=== PATIENT | female | born 1995 | race Caucasian/White ===

== ENCOUNTER 2019-05-07 12:01 | Emergency (ER) | payer SELFPAY ==
[~2019-05-07] VITALS: Ht 152.4 cm; Wt 70.2 kg
--- NOTE | 2019-05-07 12:45 | Diagnostic Imaging Report ---
INDICATION: Previous injury to the foot, more recent, new injury with pain.. TECHNIQUE: 3 views of the left foot CORRELATION STUDY: None FINDINGS: The osseous structures of the foot are intact. Joint spaces are maintained. Alignment anatomic. Soft tissues appearing unremarkable. IMPRESSION: 1. Negative for acute findings of the foot. Dictated by: Dictated on workstation # [id number]
[2019-05-07] MEDS ORDERED: Pristiq (12:47)
[2019-05-07] MEDS ORDERED: Seroquel (12:47)
[2019-05-07] MEDS ORDERED: Hydroxyzine (12:47)
[2019-05-07] MEDS ORDERED: Trazodone HCl (12:47)
--- NOTE | 2019-05-07 12:49 | ED Lower Extremity ---
General Chief Complaint: Lower Extremity Stated Complaint: POSS BROKEN LEFT FOOT Source: patient Exam Limitations: no limitations History of Present Illness Date Seen by Provider: May 07, 2019 Time Seen by Provider: 12:20 Initial Comments The patient is a pleasant 22-year-old female presents for evaluation of left lateral foot pain. She states that 3 years ago she fractured the left foot and has occasionally worn a walking boot since that time. She says that 2 weeks ago she twisted/reinjured the foot and has been having pain when weight-bearing since then. She states there is a possibility that she is would like to have the test performed. She denies any ankle pain or any other injuries or complaints. Pain/Injury Location: left foot Method of Injury: twisted Modifying Factors: Improves With Immobilization (makes it better), Improves With Movement (makes it worse) Allergies and Home Medications Allergies Coded Allergies: codeine (Unverified Adverse Reaction, Unknown, 05/07/19) Patient Home Medication List Home Medication List Reviewed: Yes Review of Systems Constitutional: no symptoms reported EENTM: no symptoms reported Respiratory: no symptoms reported Cardiovascular: no symptoms reported Gastrointestinal: no symptoms reported Genitourinary: no symptoms reported Musculoskeletal: other (left lateal foot pain) Skin: no symptoms reported Psychiatric/Neurological: No Symptoms Reported All Other Systems Reviewed Negative Unless Noted: Yes Past Gclxijz-Awdjrd-Extdls Hx Past Med/Social Hx: Reviewed Nursing Past Med/Soc Hx Patient Social History Alcohol Use: Denies Use Recreational Drug Use: No Smoking Status: Current Everyday Smoker Type Used: Cigarettes 2nd Hand Smoke Exposure: No Recent Foreign Travel: No Contact w/Someone Who Travel: No Physical Abuse: No Sexual Abuse: No Mistreated: No Fear: No Immunizations Up To Date Date of Influenza Vaccine: Apr 07, 2019 Physical Exam Vital Signs Vital Signs - First Documented 05/07/19 12:10 Temp 36.4 Pulse 90 Resp 18 B/P (MAP) 135/86 (102) Pulse Ox 99 O2 Delivery Room Air Capillary Refill : Height, Weight, BMI Height: '" Weight: lbs. oz. kg; BMI Method: General Appearance: WD/WN, no apparent distress HEENT: PERRL/EOMI, pharynx normal Neck: non-tender, full range of motion Cardiovascular: regular rate, rhythm, no edema, no JVD Respiratory: chest non-tender, lungs clear, normal breath sounds Feet: left foot bone tenderness (left 5th metatarsal head ttp) Neurologic/Psychiatric: director microbiology II-XII nml as tested, no motor/sensory deficits, alert, normal mood/affect, oriented x 3 Skin: normal color, warm/dry Progress/Results/Core Measures Results/Orders My Orders Orders - MAYCO BORREGO DO Urine Bedside (05/07/19 12:27) Foot 3 View Left (05/07/19 12:27) Ice: Apply To Affected Area (05/07/19 12:27) Vital Signs/I&O 05/07/19 12:10 Temp 36.4 Pulse 90 Resp 18 B/P (MAP) 135/86 (102) Pulse Ox 99 O2 Delivery Room Air Progress Progress Note : Progress Note @1310 - Patient updated on imaging results which are unremarkable. There is no evidence of an acute fracture. Advised the patient to use her walking boot for comfort if she finds that it is more comfortable. Workup today fails reveal any emergent pathology. The patient is stable for discharge home. Diagnostic Imaging Diagonstic Imaging: Xray Comments [facility], [place] NAME: YVETTE GIBSON [facility] REC#: [id number] PT STATUS: REG ER : 1995 PHYSICIAN: MAYCO BORREGO DO ADMIT DATE: 05/07/19/ER FS Draft Date of Exam:05/07/19 FOOT 3 VIEW LEFT INDICATION: Previous injury to the foot, more recent, new injury with pain.. TECHNIQUE: 3 views of the left foot CORRELATION STUDY: None FINDINGS: The osseous structures of the foot are intact. Joint spaces are maintained. Alignment anatomic. Soft tissues appearing unremarkable. IMPRESSION: 1. Negative for acute findings of the foot. Dictated on workstation # [id number] Dict: 05/07/19 1244 Trans: 05/07/19 1245 DO [id number] Interpreted by: TREY PRATT DO Electronically signed by: Departure Impression Primary Impression: Left foot pain Disposition: HOME, SELF-CARE Condition: Stable Departure-Patient Inst. Decision time for Depature: 13:13 Referrals: [facility]/ (PCP) Primary Care Physician RUTHIE SANTOYO (Family) Primary Care Physician Patient Instructions: Foot Sprain (DC) Add. Discharge Instructions: Apply ice as needed for pain relief. Take ibuprofen or Tylenol for pain relief as needed. Follow-up with your doctor in the next 2-3 days. If it is more comfortable for you to use a walking boot temporarily that would be fine. Return to the ER for new or worsening symptoms. MAYCO BORREGO DO May 07, 2019 12:49
[2019-05-07 13:24] VITALS: BP 130/82
--- NOTE | 2019-05-07 13:24 | NUR ---
Pt discharged to home after review of home instructions reviewed and pt verbalized understanding. Pt requests a work note to not return till tomorrow and then states "Add that I need to wear by walking boot I had from my past Fx foot while at work." Dr Bullard reports make the note sufficient to allow pt to accept her discharge plan from the ER. No Rx.
== END 2019-05-07 13:24 | disposition home or self-care (01) ==
LOC: ER FS 12:03
DX: M79.672 Pain in left foot (principal); F17.210 Nicotine dependence, cigarettes, uncomplicated; X50.1XXA Overexertion from prolonged static or awkward postures, initial encounter
CPT/HCPCS: 73630; 84703

== ENCOUNTER 2019-05-15 00:20 | Emergency (ER) | payer SELFPAY ==
[~2019-05-15] VITALS: Ht 154.9 cm; Wt 68.1 kg
[~2019-05-15 00:20] MED LIST: Hydroxyzine; Pristiq; Seroquel; Trazodone HCl
--- NOTE | 2019-05-15 00:47 | ED Abdominal Pain ---
General Chief Complaint: Lower Extremity Stated Complaint: CRAMPING Nursing Triage Note: PT. STATED HER LAST PERIOD WAS 2018. PT. REPORTED SPOTTING ON THE April. PT. REPORTED HAVING ABD. CRAMPING SINCE . NO SPOTTING NO LEAKING NOTED. Sepsis Screen: No Definite Risk History of Present Illness Date Seen by Provider: May 15, 2019 Time Seen by Provider: 00:30 Initial Comments Patient is white female with a positive test [facility] on [facility] and also did a quantitative beta hCG which she says always comes back low she doesn't know what the number was does not an OB and has been cramping and having some suprapubic pain. Timing/Duration: 3-4 Days Severity/Quality: Moderate, Cramping Location: Suprapubic Radiation: No Radiation Activities at Onset: None Modifying Factors: Improves With Lying down Associated Symptoms: No Headache, No Nausea/Vomiting Allergies and Home Medications Allergies Coded Allergies: codeine (Unverified Adverse Reaction, Unknown, 05/07/19) Patient Home Medication List Home Medication List Reviewed: Yes Review of Systems Review of Systems Constitutional: No chills, No fever, No malaise, No weakness EENTM: No Ear Pain, No Throat Pain, No Throat Swelling Respiratory: Denies Cough, Denies Shortness of Air Cardiovascular: Denies Chest Pain, Denies Palpitations Gastrointestinal: Abdominal Pain; Denies Diarrhea, Denies Nausea, Denies Vomiting Genitourinary: Denies Frequency, Denies Hematuria Musculoskeletal: No muscle pain, No muscle stiffness Skin: No lesions, No rash Psychiatric/Neurological: Denies Headache, Denies Numbness, Denies Tingling Past Chyjrtz-Ftjhnv-Gvrkql Hx Past Med/Social Hx: Reviewed Nursing Past Med/Soc Hx Patient Social History Type Used: Cigarettes 2nd Hand Smoke Exposure: No Recent Foreign Travel: No Contact w/Someone Who Travel: No Recent Infectious Disease Expo: No Recent Hopitalizations: No Physical Abuse: No Sexual Abuse: No Mistreated: No Fear: No Immunizations Up To Date Date of Influenza Vaccine: Apr 07, 2019 Seasonal Allergies Seasonal Allergies: No Past Medical History Surgeries: No Respiratory: No Cardiac: No Neurological: No : Yes Last Menstrual Period: Mar 19, 2019 Hx : 4 Hx Para: 2 Hx Total # of Abortions (Sp): 1 Genitourinary: No Gastrointestinal: No Musculoskeletal: Yes (L foot Fx 2010) Fractures Endocrine: No HEENT: No Cancer: No Psychosocial: Yes Bipolar, Depression Integumentary: No Blood Disorders: No Physical Exam Vital Signs Vital Signs - First Documented 05/15/19 00:30 Temp 36.9 Pulse 102 Resp 16 B/P (MAP) 135/84 (101) Pulse Ox 99 O2 Delivery Room Air Capillary Refill : Less Than 3 Seconds Height/Weight/BMI Height: '" Weight: lbs. oz. kg; 28.00 BMI Method: General Appearance: WD/WN, mild distress HEENT: PERRL/EOMI, TMs normal, pharynx normal Neck: non-tender, normal inspection Respiratory: lungs clear, normal breath sounds Cardiovascular: regular rate, rhythm, no murmur Gastrointestinal: normal bowel sounds; No distended, No guarding, No rebound; tenderness (mild suprapubic) Extremities: non-tender, normal inspection Back: normal inspection, no CVA tenderness Neurologic/Psychiatric: no motor/sensory deficits, alert, normal mood/affect Progress/Results/Core Measures Results/Orders Lab Results Laboratory Tests Test 05/15/19 00:46 05/15/19 00:54 05/15/19 02:07 Range/Units Urine Color YELLOW Urine Clarity SLIGHTLY CLOUDY Urine pH 6.5 5-9 Urine Specific [place] 1.025 H 1.016-1.022 Urine Protein NEGATIVE NEGATIVE Urine Glucose (UA) NEGATIVE NEGATIVE Urine Ketones NEGATIVE NEGATIVE Urine Nitrite NEGATIVE NEGATIVE Urine Bilirubin NEGATIVE NEGATIVE Urine Urobilinogen 0.2 < = 1.0 MG/DL Urine Leukocyte Esterase NEGATIVE NEGATIVE Urine RBC (Auto) NEGATIVE NEGATIVE Urine RBC NONE /HPF Urine WBC 5-10 H /HPF Urine Squamous Epithelial Cells 25-50 H /HPF Urine Crystals PRESENT H /LPF Urine Calcium Oxalate Crystals FEW H /LPF Urine Bacteria FEW H /HPF Urine Casts NONE /LPF Urine Mucus MODERATE H /LPF Urine Culture Indicated YES White Blood Count 15.7 H 4.3-11.0 10^3/uL Red Blood Count 4.78 4.35-5.85 10^6/uL Hemoglobin 12.9 11.5-16.0 G/DL Hematocrit 40 35-52 % Mean Corpuscular Volume 83 80-99 FL Mean Corpuscular Hemoglobin 27 25-34 PG Mean Corpuscular Hemoglobin Concent 33 32-36 G/DL Red Cell Distribution Width 13.9 10.0-14.5 % Platelet Count 310 130-400 10^3/uL Mean Platelet Volume 10.3 7.4-10.4 FL Neutrophils (%) (Auto) 71 42-75 % Lymphocytes (%) (Auto) 20 12-44 % Monocytes (%) (Auto) 7 0-12 % Eosinophils (%) (Auto) 2 0-10 % Basophils (%) (Auto) 0 0-10 % Neutrophils # (Auto) 11.1 H 1.8-7.8 X 10^3 Lymphocytes # (Auto) 3.1 1.0-4.0 X 10^3 Monocytes # (Auto) 1.1 H 0.0-1.0 X 10^3 Eosinophils # (Auto) 0.3 0.0-0.3 10^3/uL Basophils # (Auto) 0.1 0.0-0.1 10^3/uL Neutrophils % (Manual) 79 % Lymphocytes % (Manual) 15 % Monocytes % (Manual) 3 % Eosinophils % (Manual) 3 % Microcytosis MARKED Human Chorionic Gonadotropin, Quant 278 H <5 MIU/ML My Orders Orders - MECCA MCCORD JR, MD Cbc And Manual Diff (05/15/19 00:41) Ua Culture If Indicated (05/15/19 00:41) Hcg,Quantitative (05/15/19 00:41) Urine Culture (05/15/19 00:46) Chlam Dna Probe (05/15/19 02:12) Neis Mohsen Dna Urine Test (05/15/19 02:12) Ceftriaxone For Iv Use (Rocephin For I (05/15/19 02:30) Vital Signs/I&O 05/15/19 00:30 Temp 36.9 Pulse 102 Resp 16 B/P (MAP) 135/84 (101) Pulse Ox 99 O2 Delivery Room Air Blood Pressure Mean: 101 Progress Progress Note : Time: 02:49 Progress Note Discussed with patient about right lower quadrant pain low beta hCG high white count do feel like she needs an ultrasound may be a CAT scan to rule out ectopic or ovarian cyst abdominal appendicitis. We'll send to [facility] as they have services and surgical back up. We'll go ahead and give antibiotics at this Departure Impression Primary Impression: Right lower quadrant abdominal pain Additional Impression: Qualified Codes: Z34.90 - Encounter for supervision of normal , unspecified, unspecified trimester Disposition: 02 XFER SHT-TRM HOSP Condition: Stable Transfer Transfer Reason: Exceeds level of care Time Spoke to Accepting Phy: 02:50 Transfer Progress Notes Discussed with Dr. Reyes at [facility] in [facility] will except in the emergency room to emergency room transfer by ALS transport Transfer Time: 02:50 Method of Transfer: EMS Departure-Patient Inst. Referrals: [facility] (PCP) Primary Care Physician RUTHIE SANTOYO (Family) Primary Care Physician MECCA MCCORD JR, MD May 15, 2019 00:47
[2019-05-15 01:04] LABS: WHITE BLOOD COUNT 15.7 10^3/uL (4.3-11.0)
[2019-05-15 01:05] LABS: BASOPHILS # (AUTO) 0.1 10^3/uL (0.0-0.1); BASOPHILS % (AUTO) 0 % (0-10); EOSINOPHILS # (AUTO) 0.3 10^3/uL (0.0-0.3); EOSINOPHILS % (AUTO) 2 % (0-10); HEMATOCRIT 40 % (35-52); HEMOGLOBIN 12.9 G/DL (11.5-16.0); LYMPHOCYTES # (AUTO) 3.1 X 10^3 (1.0-4.0); LYMPHOCYTES % (AUTO) 20 % (12-44); MEAN CORPUSCULAR HEMOGLOBIN 27 PG (25-34); MEAN CORPUSCULAR HGB CONC 33 G/DL (32-36); MEAN CORPUSCULAR VOLUME 83 FL (80-99); MEAN PLATELET VOLUME 10.3 FL (7.4-10.4); MONOCYTES # (AUTO) 1.1 X 10^3 (0.0-1.0); MONOCYTES % (AUTO) 7 % (0-12); NEUTROPHILS # (AUTO) 11.1 X 10^3 (1.8-7.8); NEUTROPHILS % (AUTO) 71 % (42-75); PLATELET COUNT 310 10^3/uL (130-400); RED CELL DISTRIBUTION WIDTH 13.9 % (10.0-14.5)
[2019-05-15 01:06] LABS: BACTERIA,URINE FEW /HPF; BILIRUBIN,URINE NEGATIVE (NEGATIVE); CALCIUM OXALATE CRYSTALS,UR FEW /LPF; CLARITY,URINE SLIGHTLY CLOUDY; COLOR,URINE YELLOW; GLUCOSE, URINE (UA) NEGATIVE (NEGATIVE); KETONES,URINE NEGATIVE (NEGATIVE); LEUKOCYTE ESTERASE ,URINE NEGATIVE (NEGATIVE); NITRITE,URINE NEGATIVE (NEGATIVE); PH,URINE 6.5 (5-9); PROTEIN,URINE NEGATIVE (NEGATIVE); SQUAMOUS EPITHELIAL CELL,UR 25-50 /HPF
[2019-05-15 01:20] LABS: EOSINOPHILS % (MANUAL) 3 %; LYMPHOCYTES % (MANUAL) 15 %; MICROCYTOSIS MARKED; MONOCYTES % (MANUAL) 3 %; NEUTROPHILS % (MANUAL) 79 %
--- NOTE | 2019-05-15 02:11 | NUR ---
PELVIC EXAM DONE BY THE DOCTOR AND THE LAB WAS SENT TO THE LAB.
[2019-05-15] MEDS ORDERED: cefTRIAXone FOR IV USE 1,000 MG in WATER (STERILE) FOR INJECTION 10 ML IV ONE (02:30)
[2019-05-15 03:05] VITALS: BP 132/82
== END 2019-05-15 03:57 | disposition short-term general hospital (02) ==
LOC: EDUNIT# 00:20 → ER FS 00:25
DX: O26.899 Other specified pregnancy related conditions, unspecified trimester (principal); R10.31 Right lower quadrant pain; Z88.5 Allergy status to narcotic agent; Z3A.00 Weeks of gestation of pregnancy not specified
CPT/HCPCS: 36415; 81000; 84702; 85007; 85027; 87088; 87491; 87591; 96374

== ENCOUNTER → 2020-08-30 | Outpatient (CLI) | payer MEDICAID | LOC: LAB FS 14:15 | PROVIDERS: ATTEND Family Medicine | DX: O20.0 Threatened abortion (principal) | CPT/HCPCS: 36415; 84702 ==

== ENCOUNTER → 2020-09-01 | Outpatient (CLI) | payer MEDICAID ==
[2020-09-01 11:22] LABS: HEMATOCRIT 38 % (35-52); HEMOGLOBIN 12.1 G/DL (11.5-16.0); MEAN CORPUSCULAR HEMOGLOBIN 25 PG (25-34); MEAN CORPUSCULAR HGB CONC 32 G/DL (32-36); MEAN CORPUSCULAR VOLUME 80 FL (80-99); WHITE BLOOD COUNT 9.2 10^3/uL (4.3-11.0)
[2020-09-01 11:23] LABS: MEAN PLATELET VOLUME 10.6 FL (7.4-10.4); PLATELET COUNT 281 10^3/uL (130-400)
== END ==
LOC: LAB FS 10:59
PROVIDERS: ATTEND Family Medicine
DX: Z34.91 Encounter for supervision of normal pregnancy, unspecified, first trimester (principal); Z3A.00 Weeks of gestation of pregnancy not specified
CPT/HCPCS: 36415; 85027; 86703; 86762; 86780; 86850; 86900; 86901; 87088; 87340

== ENCOUNTER → 2020-11-13 | Outpatient (CLI) | payer MEDICAID | LOC: LAB FS 14:29 | PROVIDERS: ATTEND Family Medicine | DX: Z34.91 Encounter for supervision of normal pregnancy, unspecified, first trimester (principal); Z3A.00 Weeks of gestation of pregnancy not specified | CPT/HCPCS: 36415; 82105; 82677; 84702; 86336 ==

== ENCOUNTER → 2020-11-16 | Outpatient (CLI) | payer MEDICAID ==
--- NOTE | 2020-11-16 12:27 | Diagnostic Imaging Report ---
INDICATION: survey. TECHNIQUE: Multiple real-time grayscale images were obtained over the gravid uterus. COMPARISON: None FINDINGS: There is a single live fetus in a transverse presentation, head to maternal right. heart rate was recorded at 132 bpm. Placenta is posterior and to the right. The amniotic fluid volume is normal. The kidneys, bladder and stomach are unremarkable. brain is unremarkable. There is a four-chamber heart. There is a three-vessel cord with normal insertion. spine is unremarkable. Biometrical measurements are as follows: Biparietal 4.33 cm, age 19 weeks 1 days. Head circumference 15.70 cm, age 18 weeks 5 days. Abdominal circumference 12.55 cm, age 18 weeks 2 days. Femur length 2.60 cm, age 18 weeks 0 days. Sonographic estimate age: 18 weeks 4 days. Sonographic estimated date of delivery: 04/15/21. Estimated Weight: 225 gm (+/- 33 gm). LMP percentile: 62%. heart rate: 132 beats per minute. number: 1 of 1. IMPRESSION: Single live IUP 18 weeks 4 days gestational age with estimated date of confinement sonographically of 04/15/2021. No complicating features are detected. Dictated by: Dictated on workstation # [id number]
== END ==
LOC: RAD 10:09
PROVIDERS: ATTEND Family Medicine
DX: Z34.92 Encounter for supervision of normal pregnancy, unspecified, second trimester (principal); Z3A.18 18 weeks gestation of pregnancy
CPT/HCPCS: 76805

== ENCOUNTER → 2021-01-15 | Outpatient (CLI) | payer MEDICAID ==
[~2021-01-15] MED LIST changes: +IRON1TAB95 PO; +PREN1TAB19 PO
[2021-01-15 14:47] LABS: HEMOGLOBIN 9.5 g/dL (11.5-16.0); MEAN CORPUSCULAR HEMOGLOBIN 25 pg (25-34); WHITE BLOOD COUNT 9.3 10^3/uL (4.3-11.0)
[2021-01-15 14:48] LABS: HEMATOCRIT 30 % (35-52); MEAN CORPUSCULAR HGB CONC 32 g/dL (32-36); MEAN CORPUSCULAR VOLUME 79 fL (80-99); MEAN PLATELET VOLUME 10.7 fL (9.0-12.2); PLATELET COUNT 243 10^3/uL (130-400)
== END ==
LOC: LAB FS 14:21
PROVIDERS: ATTEND Family Medicine
DX: Z34.91 Encounter for supervision of normal pregnancy, unspecified, first trimester (principal)
CPT/HCPCS: 36415; 82950; 85027; 86780

== ENCOUNTER 2021-01-16 17:25 | Outpatient (CLI) | payer MEDICAID ==
[~2021-01-16] VITALS: Ht 152 cm; Wt 86.9 kg
[~2021-01-16 17:25] MED LIST changes: -IRON1TAB95 PO; -PREN1TAB19 PO
[2021-01-16 18:00] VITALS: BP 120/67
[2021-01-16 18:15] VITALS: BP 120/67
[2021-01-16] MEDS ORDERED: NS IV 1000 ML 1,000 ML IV SCH (18:45)
[2021-01-16] MEDS ORDERED: PROMETHAZINE INJ 25 MG/ML (PHENERGAN) AMP IVP ONE (18:45)
[2021-01-16] MEDS ORDERED: NS IV 1000 ML 1,000 ML ONE (19:00)
[2021-01-16 19:25] LABS: BASOPHILS % (AUTO) 0 % (0-10); EOSINOPHILS # (AUTO) 0.1 10^3/uL (0.0-0.3); EOSINOPHILS % (AUTO) 1 % (0-10); HEMATOCRIT 31 % (35-52); HEMOGLOBIN 9.7 g/dL (11.5-16.0); LYMPHOCYTES # (AUTO) 1.5 10^3/uL (1.0-4.0); LYMPHOCYTES % (AUTO) 18 % (12-44); MEAN CORPUSCULAR HEMOGLOBIN 25 pg (25-34); MEAN CORPUSCULAR HGB CONC 31 g/dL (32-36); MEAN CORPUSCULAR VOLUME 80 fL (80-99); MEAN PLATELET VOLUME 11.1 fL (9.0-12.2); MONOCYTES # (AUTO) 0.6 10^3/uL (0.0-1.0); MONOCYTES % (AUTO) 7 % (0-12); NEUTROPHILS # (AUTO) 6.4 10^3/uL (1.8-7.8); NEUTROPHILS % (AUTO) 73 % (42-75); PLATELET COUNT 261 10^3/uL (130-400); WHITE BLOOD COUNT 8.8 10^3/uL (4.3-11.0)
[2021-01-16 19:42] VITALS: BP 128/73
[2021-01-16 19:47] LABS: ALBUMIN 3.2 GM/DL (3.2-4.5); BILIRUBIN,TOTAL 0.6 MG/DL (0.1-1.0); CALCIUM 8.9 MG/DL (8.5-10.1); CREATININE SERUM 0.63 MG/DL (0.60-1.30); POTASSIUM 3.4 MMOL/L (3.6-5.0); TOTAL PROTEIN 6.2 GM/DL (6.4-8.2)
[2021-01-16] MEDS ORDERED: PREN1TAB19 PO (19:47)
[2021-01-16] MEDS ORDERED: IRON1TAB95 PO (19:47)
[2021-01-16 20:03] LABS: BILIRUBIN,URINE NEGATIVE (NEGATIVE); CLARITY,URINE SL CLOUDY; COLOR,URINE YELLOW; GLUCOSE, URINE (UA) NEGATIVE (NEGATIVE); KETONES,URINE NEGATIVE (NEGATIVE); LEUKOCYTE ESTERASE ,URINE 2+ (NEGATIVE); NITRITE,URINE NEGATIVE (NEGATIVE); PH,URINE 6.5 (5-9); PROTEIN,URINE NEGATIVE (NEGATIVE)
[2021-01-16 20:11] LABS: BACTERIA,URINE FEW /HPF; SQUAMOUS EPITHELIAL CELL,UR 0-2 /HPF
[2021-01-16 20:40] VITALS: BP 128/73
--- NOTE | 2021-01-17 08:07 | Physician Query-Final Dx ---
UMESH SEVILLA 01/17/21 0807: Clinic Account Progress/Dx Physician Query: Please give diagnosis Please include # weeks gestation Date of Service Jan 16, 2021 at 17:25 DIANE ROBLES DO 01/19/21 0921: Clinic Account Progress/Dx DIAGNOSIS: Diagnosis nausea and vomiting UMESH SEVILLA Jan 17, 2021 08:07 DIANE ROBLES DO Jan 19, 2021 09:21
== END 2021-01-16 20:25 | disposition home or self-care (01) ==
LOC: WSo 17:25 → LDRP 17:25 → WSo 20:25
PROVIDERS: ATTEND Obstetrics & Gynecology
DX: O21.9 Vomiting of pregnancy, unspecified (principal); Z3A.00 Weeks of gestation of pregnancy not specified
CPT/HCPCS: 36415; 80053; 81000; 85025; 87088; 96360; 99213

== ENCOUNTER → 2021-01-19 | Outpatient (CLI) | payer MEDICAID ==
[~2021-01-19] MED LIST changes: +IRON1TAB95 PO; +PREN1TAB19 PO
== END ==
LOC: LAB FS 12:23
PROVIDERS: ATTEND Family Medicine
DX: R73.09 Other abnormal glucose (principal)
CPT/HCPCS: 36415; 82951; 82952

== ENCOUNTER 2021-03-08 07:20 | Outpatient (CLI) | payer MEDICAID ==
[~2021-03-08] VITALS: Ht 154.9 cm; Wt 93.4 kg
[2021-03-08 08:23] VITALS: BP 131/80
[2021-03-08 08:30] LABS: BILIRUBIN,URINE NEGATIVE (NEGATIVE); CLARITY,URINE SL CLOUDY; COLOR,URINE YELLOW; GLUCOSE, URINE (UA) NEGATIVE (NEGATIVE); KETONES,URINE NEGATIVE (NEGATIVE); LEUKOCYTE ESTERASE ,URINE NEGATIVE (NEGATIVE); NITRITE,URINE NEGATIVE (NEGATIVE); PROTEIN,URINE NEGATIVE (NEGATIVE)
[2021-03-08 08:41] LABS: BACTERIA,URINE NEGATIVE /HPF
[2021-03-08 12:21] LABS: AMPHETAMINE SCREEN, URINE NEGATIVE (NEGATIVE); BARBITURATE SCREEN URINE NEGATIVE (NEGATIVE); BENZODIAZEPINES SCREEN URINE NEGATIVE (NEGATIVE); CANNABINOID SCREEN, URINE NEGATIVE (NEGATIVE); COCAINE SCREEN URINE NEGATIVE (NEGATIVE); METHADONE STAT NEGATIVE (NEGATIVE); METHAMPHETAMINE SCREEN URINE S NEGATIVE (NEGATIVE); OPIATE SCREEN URINE NEGATIVE (NEGATIVE); OXYCODONE STAT NEGATIVE (NEGATIVE); PROPOXYPHENE STAT NEGATIVE (NEGATIVE); TRICYCLIC ANTIDEPRESSANTS SCRE NEGATIVE (NEGATIVE)
--- NOTE | 2021-03-08 13:25 | OB Triage Report ---
Standard Progress Note Progress Notes/Assess & Plan Date Seen by a Provider: Mar 08, 2021 Time Seen by a Provider: 11:45 Expected Date of Delivery: Apr 17, 2020 Gestational Age in Weeks: 34 Gestational Age in Days: 2 LMP/SULEMA Comment: SULEMA 04/17/2020 Progress/Assessment & Plan S: Patient is a 25 yo with IUP at 34w2d who presents for contractions. Denies vaginal bleeding, abnormal vaginal discharge, LOF. Notes good movements O: Vital Signs 03/08/21 08:23 Temp 36.4 Pulse 103 Resp 18 Pulse Ox 100 O2 Delivery Room Air General: not in distress. Resting comfortably Heart: normal rate and peripheral perfusion Lungs: symmetric chest rise, non-labored respirations [place]: contractions q 3-5 min FHR: 120bpm, mod neil, + accels, - decels SVE: 2/70/-3 A/P: 25 yo with IUP at 34w2d who presents for contractions - Wet prep notable for clue cells and WBC: will treat with flagyl for BV - UA negative - UDS negative - SVE unchanged over period of stay in triage - Oral hydrate - Tylenol 1g PO x1 for pain Final Diagnosis contractions BRENDEN GONZALEZ MD Mar 08, 2021 13:25
[2021-03-08] MEDS ORDERED: ACETAMINOPHEN 500 MG TAB (TYLENOL) PO PRN (14:00)
[2021-03-08] MEDS ORDERED: ACETAMINOPHEN 500 MG TAB (TYLENOL) ONE (14:04)
[2021-03-08] MEDS ORDERED: METR-145 PO (16:28)
--- NOTE | 2021-03-08 16:32 | Discharge Inst-Simple/Standard ---
Discharge Inst-Standard Reconcile Patient Problems Problems Reviewed?: Yes Discharge Medications New, Converted or Re-Newed RX: Transmitted to Pharmacy Patient Instructions/Follow Up Plan of Care/Instructions/FU: Keep all follow-up visits as scheudled Activity as Tolerated: Yes Discharge Diet: No Restrictions Return to The Hospital For: Vaginal bleeding, Leakage of fluid per vagina, decreased/absent movements, frequent painful contractions, Fever of 100.4 or greater, or any other concerns BRENDEN GONZALEZ MD Mar 08, 2021 16:32
--- NOTE | 2021-03-08 16:33 | Short Stay Summary ---
Discharge Summary Hospital Course Was the Problem List Reviewed?: Yes Hospital Course Date of Admission: Admission Diagnosis : Family Physician/Provider: Flor Stahl MD Date of Discharge: 03/08/21 Discharge Diagnosis: [ ] Hospital Course: [ ] Labs and Pending Lab Test: Laboratory Tests 03/08/21 07:30: Urine Color YELLOW, Urine Clarity SL CLOUDY, Urine pH 6.0, Urine Specific [place] 1.020, Urine Protein NEGATIVE, Urine Glucose (UA) NEGATIVE, Urine Ketone s NEGATIVE, Urine Nitrite NEGATIVE, Urine Bilirubin NEGATIVE, Urine Urobilinogen 0.2, Urine Leukocyte Esterase NEGATIVE, Urine RBC (Auto) NEGATIVE, Urine RBC NONE, Urine WBC NONE, Urine Squamous Epithelial Cells NONE, Urine Crystals NONE, Urine Bacteria NEGATIVE, Urine Casts NONE, Urine Mucus NEGATIVE, Urine Culture Indicated NO, Urine Opiates Screen NEGATIVE, Urine Oxycodone Screen NEGATIVE, Urine Methadone Screen NEGATIVE, Urine Propoxyphene Screen NEGATIVE, Urine Barbiturates Screen NEGATIVE, Ur Tricyclic Antidepressants Screen NEGATIVE, Urine Phencyclidine Screen NEGATIVE, Urine Amphetamines Screen NEGATIVE, Urine Methamphetamines Screen NEGATIVE, Urine Benzodiazepines Screen NEGATIVE, Urine Cocaine Screen NEGATIVE, Urine Cannabinoids Screen NEGATIVE Microbiology 03/08/21 Wet Prep - Final, Complete Home Meds Active Metronidazole 500 Mg Tablet 500 Mg PO Q12H 7 Days Reported Iron 100 Plus Tablet (Iron,Carbonyl/Vit C/Vit B12/FA) 1 Each Tablet 1 Each PO ONCE Vitamins Tablet ( Vit/Iron Fumarate/FA) 1 Each Tablet 1 Each PO DAILY Discharge Instructions Discharge Diet: No Restrictions Activity as Tolerated: Yes Discharge Physical Examination Allergies: Coded Allergies: codeine (Unverified Adverse Reaction, Unknown, 05/07/19) Discharge Summary Date of Admission Date of Discharge BRENDEN GONZALEZ MD Mar 08, 2021 16:33
== END 2021-03-08 16:40 | disposition home or self-care (01) ==
LOC: WSo 07:20 → LDRP 07:22 → WSo 16:40
PROVIDERS: ATTEND Obstetrics & Gynecology
DX: O60.03 Preterm labor without delivery, third trimester (principal); Z3A.34 34 weeks gestation of pregnancy
CPT/HCPCS: 80306; 81000; 87210; 99214

== ENCOUNTER 2021-03-19 19:20 | Outpatient (CLI) | payer MEDICAID ==
[~2021-03-19] VITALS: Ht 154.9 cm; Wt 93.9 kg
[2021-03-19] VITALS (7 sets, daily range): BP systolic 136–141; BP diastolic 90–96
[~2021-03-19 19:20] MED LIST changes: +METR-145 PO
[2021-03-19 20:13] LABS: BILIRUBIN,URINE NEGATIVE (NEGATIVE); CLARITY,URINE CLEAR; COLOR,URINE YELLOW; GLUCOSE, URINE (UA) NEGATIVE (NEGATIVE); KETONES,URINE NEGATIVE (NEGATIVE); LEUKOCYTE ESTERASE ,URINE 1+ (NEGATIVE); NITRITE,URINE NEGATIVE (NEGATIVE); PH,URINE 6.5 (5-9); PROTEIN,URINE NEGATIVE (NEGATIVE)
[2021-03-19 20:24] LABS: BACTERIA,URINE MODERATE /HPF
[2021-03-19] MEDS ORDERED: ACETAMINOPHEN 500 MG TAB (TYLENOL) PO ONE (21:15)
[2021-03-19] MEDS ORDERED: CYCLOBENZAPRINE 10 MG (FLEXERIL) TAB PO SCH (21:15)
[2021-03-19 22:23] LABS: BASOPHILS % (AUTO) 0 % (0-10); EOSINOPHILS # (AUTO) 0.1 10^3/uL (0.0-0.3); EOSINOPHILS % (AUTO) 1 % (0-10); HEMATOCRIT 30 % (35-52); LYMPHOCYTES % (AUTO) 21 % (12-44); MEAN CORPUSCULAR HEMOGLOBIN 21 pg (25-34); MEAN CORPUSCULAR HGB CONC 30 g/dL (32-36); MEAN CORPUSCULAR VOLUME 72 fL (80-99); MEAN PLATELET VOLUME 10.7 fL (9.0-12.2); MONOCYTES # (AUTO) 0.7 10^3/uL (0.0-1.0); MONOCYTES % (AUTO) 7 % (0-12); NEUTROPHILS # (AUTO) 6.8 10^3/uL (1.8-7.8); NEUTROPHILS % (AUTO) 71 % (42-75); PLATELET COUNT 236 10^3/uL (130-400); WHITE BLOOD COUNT 9.7 10^3/uL (4.3-11.0)
[2021-03-19 22:34] LABS: ALBUMIN 3.2 GM/DL (3.2-4.5); POTASSIUM 3.5 MMOL/L (3.6-5.0)
[2021-03-19 22:36] LABS: CALCIUM 8.6 MG/DL (8.5-10.1)
[2021-03-19 22:37] LABS: TOTAL PROTEIN 6.3 GM/DL (6.4-8.2)
[2021-03-19 22:39] LABS: BILIRUBIN,TOTAL 0.6 MG/DL (0.1-1.0)
[2021-03-19 22:40] LABS: CREATININE SERUM 0.7 MG/DL (0.60-1.30)
--- NOTE | 2021-03-19 23:25 | OB Triage Report ---
Standard Progress Note Progress Notes/Assess & Plan Date Seen by a Provider: Mar 19, 2021 Time Seen by a Provider: 22:20 Expected Date of Delivery: Apr 17, 2021 Gestational Age in Weeks: 35 Gestational Age in Days: 6 LMP/SULEMA Comment: SULEMA; 04/17/2021 Progress/Assessment & Plan Patient is a 25 yo with IUP at 35w6d gestational age, who presented for contractions. SVE per RN was 3cm/thick/hi, and unchanged over the 3hr period of evaluation in triage. She denied any vaginal bleeding or abnormal vaginal discharge, and none was noted on exam. FHT was reactive. Her pain resolved with Tylenol and Flexeril. VS were however notable for mild range BPs over multiple checks while in triage, and patient denied any symptoms of end organ involvement including CP, SOB, ESQUEDA, vision abnormalities, or abdominal pain. CBC, CMP, and UPC were non-diagnostic for PreE. She was therefore diagnosed with gestational hypertension. FHT remained reactive She has an OB appointment tomorrow with Jazz Villatoro APRN. Patient was encouraged to keep appointment, with plan to schedule IOL for 37 weeks gesta tional age secondary to gHTN. S&S of preE were discussed with patient and return precautions were given. Evaluation and plan were discussed with pt's OB provider. Final Diagnosis Uterine contractions in third trimester Gestational Hypertension Diagnosis/Problems Diagnosis/Problems (1) Gestational hypertension Status: Acute (2) Uterine contractions Status: Acute BRENDEN GONZALEZ MD Mar 19, 2021 23:25
== END 2021-03-19 23:15 | disposition home or self-care (01) ==
LOC: LDRP 19:20 → WSo 19:20
PROVIDERS: ATTEND Obstetrics & Gynecology
DX: O62.9 Abnormality of forces of labor, unspecified (principal); O36.8130 Decreased fetal movements, third trimester, not applicable or unspecified; O13.3 Gestational [pregnancy-induced] hypertension without significant proteinuria, third trimester; Z3A.35 35 weeks gestation of pregnancy
CPT/HCPCS: 36415; 80053; 81000; 82570; 84156; 85025; 99213

== ENCOUNTER → 2021-04-03 | Outpatient (CLI) | payer MEDICAID | LOC: LABNPT 16:06 | PROVIDERS: ATTEND Nurse Practitioner Women's Health | DX: R80.9 Proteinuria, unspecified (principal) | CPT/HCPCS: 82570; 84156 ==

== ENCOUNTER 2021-04-06 08:59 | Inpatient (IN) | payer MEDICAID ==
[~2021-04-06] VITALS: Ht 157 cm; Wt 94.8 kg
[2021-04-06] VITALS (14 sets, daily range): BP systolic 115–161; BP diastolic 67–98
[2021-04-06] MEDS ORDERED: D5 LR IV SOLUTION 1,000 ML IV ONE (09:41)
[2021-04-06] MEDS ORDERED: NS (IVPB) 50 ML ONE (09:41)
[2021-04-06] MEDS ORDERED: AMPICILLIN 2,000 MG/14.8 ML (IV USE) ONE (09:41)
[2021-04-06] MEDS ORDERED: AMPICILLIN FOR IV USE 2,000 MG in NS (IVPB) 50 ML IV SCH (09:46)
--- NOTE | 2021-04-06 09:52 | History & Physical-OB ---
OB - Chief Complaint & HPI Date/Time Date of Admission: Date of Admission: Date seen by a Provider: Apr 06, 2021 Time Seen by a Provider: 09:45 Chief Complaint/History OB-Reason for Admission/Chief: gestational diabetes A1, induced hypertension Hx : 4 Hx Para: 3 Expected Date of Delivery: Apr 17, 2021 Gestational Age in Weeks: 38 Gestational Age in Days: 3 Indication for induction: medical complication (see above) Admission Nurse Assessment Rev: Yes History of Labs A+/- HIV - HBsAg - VDRL NR Rub I GBS + Other testing has been wnl. However, there is polyhydramnios. She had been started on metformin by Dr. Stahl, but before she started it, she changed her diet (her step daughter is a type I diabetic) and had controlled blood sugars so never did start. Has had elevated BP the last few visits but PIH labs and PC ratio have been wnl. No severe BP and asymptomatic. Plan was to induce 38-39 weeks (scheduled 04/09/2020). Allergies and Home Medications Allergies Coded Allergies: codeine (Unverified Adverse Reaction, Unknown, 05/07/19) Patient Home Medication List Home Medication List Reviewed: Yes Iron,Carbonyl/Vit C/Vit B12/FA (Iron 100 Plus Tablet) 1 Each Tablet, 1 EACH PO ONCE, (Reported) Entered as Reported by: HORACIO ROBB on 01/16/211946 Vit/Iron Fumarate/FA ( Vitamins Tablet) 1 Each Tablet, 1 EACH PO DAILY, (Reported) Entered as Reported by: HORACIO ROBB on 01/16/211946 OB - History Hx of Present Care: Yes Ultrasounds: Normal mid trimester US Obstetrical Complications: Gestational Diabetes, Gestational Hypertension Information Induced Hypertension: Yes Maternal Gestational Diabetes: Yes Obstetrical History Hx : 6 Hx Para: 3 Hx # Term Pregnancies: 3 Hx # Pregnancies: 0 Number of Living Children: 3 Hx Termination: No Hx Total # of Abortions (Spona: 2 Hx Multiple Gestation: No Hx Ectopic : No Hx Stillbirth: No Hx Complication: No Hx Induced Hypertens: No Hx Maternal Gestational Diabet: No Hx Hemorrhage: No Delivery History Hx Dystocia: No Hx Forceps Assisted Delivery: No Hx Vacuum Extraction Assisted: No Hx Placenta Abnormality: No Hx Distress: No Hx Large For Gestational Age I: No Hx Small for Gestational Age I: No Hx Section: No Hx Vaginal Delivery Post C-Sec: No Hx Blood Disorders: No Patient Past Medical History NC Social History/Family History Alcohol Use: Denies Use Recreational Drug Use: No Smoking Cessation: Former smoker 2nd Hand Smoke Exposure: No Immunizations Rubella: immune RPR/VDRL: Negative GBS Status: Negative HBsAG: Negative OB - Admission Exam Physical Exam Vitals: first BP 160/94, repeat afebrile Heart: Rhythm Normal Abdomen: Gravid Extremities: Edema Reflexes: Normal Cervical Dilatation: 5cm Effacement: 100% Station: Ballotable (vertex by bedsids US) Membranes: Intact Heart Rate: 140's Accelerations: Accelerations Present Decelerations: No Decelerations Short Term Variability: Present [employer] Product Specialist Variability: Average (6-25) Contractions on Admission: 6-10 Minutes Apart OB - Assessment/Plan/Diagnosis Assessment Assessment: active labor, group B positive strep, other (GDM1, PIH) Admission Dx [facility] Admission Status: Inpatient Order (span 2 midnights) Reason for Inpatient Admission: [facility] Plan Plan: Expectant Management Induction Method: other (ampicillin for GBS prophylaxis. AROM or Augment as needed, but not after 2 doses of Ampicillin. Stahl = peds ) DIANE ROBLES DO Apr 06, 2021 09:52
[2021-04-06 09:59] LABS: BASOPHILS # (AUTO) 0.1 10^3/uL (0.0-0.1); BASOPHILS % (AUTO) 1 % (0-10); EOSINOPHILS # (AUTO) 0.1 10^3/uL (0.0-0.3); EOSINOPHILS % (AUTO) 1 % (0-10); HEMATOCRIT 31 % (35-52); HEMOGLOBIN 9.1 g/dL (11.5-16.0); LYMPHOCYTES % (AUTO) 20 % (12-44); MEAN CORPUSCULAR HEMOGLOBIN 21 pg (25-34); MEAN CORPUSCULAR HGB CONC 30 g/dL (32-36); MEAN CORPUSCULAR VOLUME 70 fL (80-99); MEAN PLATELET VOLUME 11.1 fL (9.0-12.2); MONOCYTES # (AUTO) 0.7 10^3/uL (0.0-1.0); MONOCYTES % (AUTO) 7 % (0-12); NEUTROPHILS # (AUTO) 7.3 10^3/uL (1.8-7.8); NEUTROPHILS % (AUTO) 71 % (42-75); PLATELET COUNT 286 10^3/uL (130-400); WHITE BLOOD COUNT 10.2 10^3/uL (4.3-11.0)
[2021-04-06] MEDS ORDERED: BUTORPHANOL INJ 2 MG/ML (STADOL) VIAL IV PRN (10:00)
[2021-04-06 10:15] LABS: ALBUMIN 3.1 GM/DL (3.2-4.5); POTASSIUM 4.2 MMOL/L (3.6-5.0)
[2021-04-06 10:16] LABS: CALCIUM 8.5 MG/DL (8.5-10.1)
[2021-04-06 10:16] LABS: BILIRUBIN,URINE NEGATIVE (NEGATIVE); CLARITY,URINE SL CLOUDY; COLOR,URINE YELLOW; GLUCOSE, URINE (UA) NEGATIVE (NEGATIVE); KETONES,URINE NEGATIVE (NEGATIVE); LEUKOCYTE ESTERASE ,URINE 2+ (NEGATIVE); NITRITE,URINE NEGATIVE (NEGATIVE); PROTEIN,URINE NEGATIVE (NEGATIVE)
[2021-04-06 10:17] LABS: TOTAL PROTEIN 5.9 GM/DL (6.4-8.2)
[2021-04-06 10:19] LABS: BILIRUBIN,TOTAL 0.5 MG/DL (0.1-1.0)
[2021-04-06 10:21] LABS: CREATININE SERUM 0.75 MG/DL (0.60-1.30)
[2021-04-06 10:38] LABS: BACTERIA,URINE MODERATE /HPF; WBC,URINE 50-100 /HPF
[2021-04-06] MEDS: AMPICILLIN FOR IV USE 1,000 MG in NS (IVPB) 50 ML IV SCH ×3 (13:55→22:05)
[2021-04-06] MEDS ORDERED: CALCIUM CARBONATE 500 MG (TUMS) TAB.CHEW PO PRN (14:15)
[2021-04-06] MEDS ORDERED: OXYTOCIN PRE-MIX DRIP 500 ML IV SCH ×2 (16:15→23:45)
[2021-04-06] MEDS ORDERED: OXYTOCIN PRE-MIX DRIP 500 ML IV ONE (16:16)
[2021-04-06] MEDS ORDERED: D5 LR IV SOLUTION 1,000 ML IV SCH (19:00)
[2021-04-06] MEDS ORDERED: LIDOCAINE/EPI 2% 1:200,00 (XYLOCAINE) 10 ML VIAL ONE ×2 (21:29→21:55)
[2021-04-06] MEDS ORDERED: MINERAL OIL CONCENTRATE 99.9% 15 ML UDC ONE (21:56)
[2021-04-06] MEDS ORDERED: diphenhydrAMINE 50 MG/ML INJ (BENADRYL) ONE (22:46)
[2021-04-06] MEDS ORDERED: fentaNYL INJ 100 MCG/2 ML AMP ONE (23:05)
[2021-04-06] MEDS ORDERED: METHYLERGONOVINE 0.2 MG/ML (METHERGINE) AMP ONE (23:14)
[2021-04-06] MEDS ORDERED: ceFAZolin INJECTION 1,000 MG ONE (23:20)
[2021-04-06] MEDS ORDERED: morphine INJ 10 MG/ML 1ML (SYR OR VIAL) ONE (23:44)
[2021-04-06] MEDS ORDERED: NALOXONE 0.4 MG/ML 1 ML (NARCAN) VIAL IV PRN (23:45)
[2021-04-06] MEDS ORDERED: ONDANSETRON 4 MG/2 ML (SDV) Z0FRAN IVP PRN (23:45)
[2021-04-06] MEDS ORDERED: TETANUS,DIPTH,PERTUSS P/F (BOOSTRIX) 0.5 ML VIAL IM SCH (23:45)
[2021-04-06] MEDS ORDERED: AZITHROMYCIN INJECTION 500 MG in NS (IVPB) 250 ML IV ONE (23:45)
[2021-04-06] MEDS ORDERED: morphine INJ 4 MG/ML 1 ML (VIAL/SYRINGE) IV PRN (23:45)
[2021-04-06] MEDS ORDERED: MEASLES,MUMPS,RUBELLA 1 EA INJ SC SCH (23:45)
--- NOTE | 2021-04-06 23:52 | Cesarean Section Operative ---
Procedure Procedure Note Pre-operative Diagnosis: Rebel Duran is a 25 /Para 6 / 3,Gestational Age 38 3/7 weeks, bradycardia. gestational hypertension, gestational diabetes, GBS + Post-operative Diagnosis: same Procedure: primary low transverse section Physician: DIANE ROBLES Estimated blood loss: 700 mL Disposition: stable and extubated Findings: Viable male infant, Apgars unknown at time of dictation, weight pending, intact placenta, 3vc, normal appearing uterus, tubes, and ovaries. body cord x 1. Baby required resuscitation at time of delivery. Indications: Rebel Duran is a 25 /Para 6 / 3,Gestational Age 38 3/7 weeks, bradycardia. gestational hypertension, gestational diabetes presenting for emergency primary section. This patient Presented in spontaneous labor and was 4 to 5 cm dilated on admission. She is GBS positive so ampicillin was started for group B strep prophylaxis. She was dreda irregularly and, due to multiparous status, augmentation was not started in order to allow for second dose of ampicillin. She was 7 to 8 cm dilated with assisted rupture of membranes at approximately Procedure Details: 20:10 PM. Oxytocin had been started about 1600. She was thought to be nearly completely dilated and wanted to push so began pushing with the RN. But was not making progress and when I examined her she had a swollen cervix and I asked her to stop pushing and she was given 1 mg of Stadol. And allowed to labor. She was only 8 cm dilated at that time. She then tried to start pushing again and was again noted to be about 8 to 9 cm and her cervix was swollen so she was given 50 mg of Benadryl IV. This was to help with cervical swelling. During this time, she wanted to push on her hands and knees. And we were having difficulty with monitoring the baby. She did not have an epidural. A pudendal block was done with 1% lidocaine. She continued to want to push on her side or hands and knees, but we were unable to monitor the baby. So she was turned to her back. At this point she was noted to be having variable decelerations but they did return to baseline. There was another patient that had been waiting for a section for failure to progress until this patient had delivered. Because she was not complete and would require some more laboring, we planned to proceed with the other patients . However just as we got to the operating room, the nurse contacted me and stated that the heart tones were very low. I returned to the room and the heart tones had recovered partially but then or decelerated into the 40s and did not return to baseline. We decided at this point to do a stat and return to the other patient to her room. And then proceeded with primary stat for this particular patient. Jimenez catheter was placed by the nurse. And a Betadine splash was done on the abdomen. And, after general anesthesia was initiated by our anesthesia colleagues, the patient was placed in the dorsal supine with leftward tilt for uterine displacement.~ A Pfannenstiel skin incision was made at 2301 using a scalpel and carried down through the underlying fascia. The fascia was incised in the midline and extended laterally in a blunt fashion. The peritoneum was identified and entered bluntly in the midline. This was then stretched laterally using manual strength. After entering the abdominal cavity and confirming lack of intraperitoneal adhesions, an extra large Nolberto retractor was placed and the lower uterine segment was visualized. A scalpel was utilized to make a low transverse uterine incision. This was extended bluntly. The 's head was grasped and brought to the level of the incision. Fundal pressure was applied and infant was delivered without difficulty. Delivery time 2301. The baby was minimally responsive. Mouth and nares were suctioned with bulb suction. After the umbilical cord was clamped and cut, the was handed off to the pediatric staff. A sample of cord blood was then obtained. cord gases were sent. The placenta was delivered intact via uterine massage. The uterus was exteriorized and cleared of all clots and debris. Methergine was given due to uterine hypotonus. The uterine incision was closed using 0 Vicryl in a running locked fashion. A second imbricated layer was placed using 0 Vicryl in a running fashion as well. The uterus was flexed forward and the posterior rectouterine space was inspected and cleared of all clots and debris. Again the hysterotomy site was examined and hemostasis was observed. The bilateral tubes and ovaries appeared normal. The uterus was placed back into the abdominal cavity and abdominal gutters were cleared of all clots and debris. A final check of the uterine incision showed it to be hemostatic. The peritoneum was closed using 3-0 Vicryl in a running fashion. The fascia was closed with 0 PDS in a running fashion. The subcutaneous space was hemostatic, and irrigated. The subcutaneous space was closed with 3-0 Vicryl in several single interrupted stitches. The skin was then closed using 4-0 Monocryl in a running subcuticular fashion. The skin edges were reapproximated together and were hemostatic. A pressure dressing was applied. All sponge, lap and needle counts were correct at the end of the procedure per nursing. Vitals - Labs Vital Signs - I&O Vital Signs Date Time Temp Pulse Resp B/P (MAP) Pulse Ox O2 Delivery O2 Flow Rate FiO2 04/06/21 19:20 82 18 130/82 (98) Room Air 04/06/21 19:05 90 18 149/87 (107) Room Air 04/06/21 18:51 96 18 145/82 (103) Room Air 04/06/21 18:37 85 18 150/90 (110) Room Air 04/06/21 18:22 90 18 137/87 (104) Room Air 04/06/21 18:05 101 18 149/93 (111) Room Air 04/06/21 17:51 95 18 145/86 (105) Room Air 04/06/21 17:37 92 18 142/87 (105) Room Air 04/06/21 17:21 94 18 133/88 (103) Room Air 04/06/21 17:04 36.6 87 18 140/77 (98) Room Air 04/06/21 14:03 36.7 97 18 99 Room Air 04/06/21 10:02 102 18 138/98 (111) 99 Room Air 04/06/21 09:21 36.5 105 18 161/94 (116) 99 Room Air Labs Laboratory Tests 04/06/21 09:30: Urine Color YELLOW, Urine Clarity SL CLOUDY, Urine pH 6.0, Urine Specific Perry 1.025H, Urine Protein 22H, Urine Glucose (UA) NEGATIVE, Urine Ketones NEGATIVE, Urine Nitrite NEGATIVE, Urine Bilirubin NEGATIVE, Urine Urobilinogen 0.2, Urine Leukocyte Esterase 2+H, Urine RBC (Auto) TRACE-IH, Urine RBC NONE, Urine WBC 50-100H, Urine Squamous Epithelial Cells 10-25H, Urine Crystals NONE, Urine Bacteria MODERATEH, Urine Casts NONE, Urine Mucus NEGATIVE, Urine Culture Indicated YES, Urine Creatinine 56, Urine Protein/Creatinine Ratio 0.39 04/06/21 09:40: White Blood Count 10.2, Red Blood Count 4.39, Hemoglobin 9.1L, Hematocrit 31L, Mean Corpuscular Volume 70L, Mean Corpuscular Hemoglobin 21L, Mean Corpuscular Hemoglobin Concent 30L, Red Cell Distribution Width 17.1H, Platelet Count 286, Mean Platelet Volume 11.1, Immature Granulocyte % (Auto) 1, Neutrophils (%) (Auto) 71, Lymphocytes (%) (Auto) 20, Monocytes (%) (Auto) 7, Eosinophils (%) (Auto) 1, Basophils (%) (Auto) 1, Neutrophils # (Auto) 7.3, Lymphocytes # (Auto) 2.0, Monocytes # (Auto) 0.7, Eosinophils # (Auto) 0.1, Basophils # (Auto) 0.1, Immature Granulocyte # (Auto) 0.1, Sodium Level 136, Potassium Level 4.2, Chloride Level 108H, Carbon Dioxide Level 17L, Anion Gap 11, Blood Urea Nitrogen 11, Creatinine 0.75, Estimat Glomerular Filtration Rate 96, BUN/Creatinine Ratio 15, Glucose Level 81, Calcium Level 8.5, Corrected Calcium 9.2, Total Bilirubin 0.5, Aspartate Amino Transf (AST/SGOT) 11, Alanine Aminotransferase (ALT/SGPT) 8, Alkaline Phosphatase 171H, Lactate Dehydrogenase 320H, Total Protein 5.9L, Albumin 3.1L DIANE ROBLES DO Apr 06, 2021 23:52
[2021-04-07] VITALS (13 sets, daily range): BP systolic 121–149; BP diastolic 60–97
[2021-04-07] MEDS: KETOROLAC 30 MG/ML VIAL IV SCH ×3 (00:56→16:21)
[2021-04-07] MEDS ORDERED: CHLORASEPTIC LOZENGE MM PRN (01:45)
[2021-04-07] MEDS ORDERED: DOCU100C37 PO (01:47)
[2021-04-07] MEDS ORDERED: IBUP-844 PO (01:47)
[2021-04-07] MEDS ORDERED: ACET-93 PO (01:47)
[2021-04-07] MEDS ORDERED: OXC5T PO (01:47)
--- NOTE | 2021-04-07 01:50 | Discharge Inst-Women's Service ---
Discharge Inst-Women's Serv Depart Medication/Instructions New, Converted or Re-Newed RX: Other (transmitted and on chart) Instructions nothing in vagina for 6 weeks no lifting over 25 lbs no driving for 1 week Final Diagnosis labor gestational hypertension gestational diabetes bradycardia emergency section Antepartum anemia Problems Reviewed?: Yes Consults/Follow Up Additional Follow Up: Yes ([address] Mendoza for incision check; [address] Stahl) Activity Activity: Activity as Tolerated Driving Instructions: No Driving for 1 Week NO SMOKING: NO SMOKING Nothing Inside Vagina: No Douching, No Mcmullen, No Tampons Diet Discharge Diet: No Restrictions Symptoms to Report to : Bleeding Excessive, Pain Increased, Fever Over 101 Degrees F, Vaginal Bleeding Increase, Cramps in Feet or Legs, Vaginal Discharge Foul For Any Problems or Questions: Contact Your Physician Skin/Wound Care Infection Signs and Symptoms: Increased Redness, Foul Odor of Wound, Increased Drainage, Skin Itchy or Has a Rash, Increased Swelling, Temperature Above 101 F Operative Area Clean and Dry: Keep Incision Clean/Dry Stitches/[place]/Dermabond: Dermabond Bathing Instructions: DIANE Black DO Apr 07, 2021 01:50
[2021-04-07] MEDS ORDERED: MILK OF MAGNESIA 400 MG/5 ML 30 ML UDC PO PRN (05:00)
[2021-04-07 05:59] LABS: BASOPHILS # (AUTO) 0.1 10^3/uL (0.0-0.1); BASOPHILS % (AUTO) 0 % (0-10); EOSINOPHILS % (AUTO) 0 % (0-10); HEMATOCRIT 26 % (35-52); HEMOGLOBIN 7.6 g/dL (11.5-16.0); LYMPHOCYTES % (AUTO) 6 % (12-44); MEAN CORPUSCULAR HEMOGLOBIN 21 pg (25-34); MEAN CORPUSCULAR HGB CONC 29 g/dL (32-36); MEAN CORPUSCULAR VOLUME 71 fL (80-99); MEAN PLATELET VOLUME 10.7 fL (9.0-12.2); MONOCYTES # (AUTO) 0.7 10^3/uL (0.0-1.0); MONOCYTES % (AUTO) 4 % (0-12); NEUTROPHILS # (AUTO) 15.2 10^3/uL (1.8-7.8); NEUTROPHILS % (AUTO) 90 % (42-75); PLATELET COUNT 231 10^3/uL (130-400); WHITE BLOOD COUNT 16.9 10^3/uL (4.3-11.0)
[2021-04-07] MEDS ORDERED: ceFAZolin INJECTION 1,000 MG in NS (IVPB) 50 ML IV SCH (06:00)
[2021-04-07] MEDS ORDERED: CATHETER FLUSH 10 ML SYR IV SCH (06:00)
[2021-04-07] MEDS: FERROUS SULF 325 MG (IRON) TAB PO SCH (08:32)
[2021-04-07] MEDS: DOCUSATE SODIUM 100 MG (COLACE) CAP PO SCH ×2 (08:32→21:51)
[2021-04-07] MEDS: ACETAMINOPHEN 500 MG TAB (TYLENOL) PO SCH ×2 (08:33→18:42)
--- NOTE | 2021-04-07 10:17 | Anesthesia-General Post-Op ---
General Patient Condition Mental Status/LOC: Same as Preop Cardiovascular: Satisfactory Nausea/Vomiting: Absent Respiratory: Satisfactory Pain: Controlled Complications: Absent Post Op Complications Complications None Follow Up Care/Instructions Patient Instructions None needed. Anesthesia/Patient Condition Patient Condition Patient is doing well, no complaints, stable vital signs, no apparent adverse anesthesia problems. No complications reported per nursing. BO RIVERA CRNA Apr 07, 2021 10:17
--- NOTE | 2021-04-07 11:38 | Postpartum Progress Note ---
Note Note Day # 1 Subjective: Patient is without complaints. Ambulating, voiding. Tolerating a regular diet without nausea or vomiting. Normal lochia. Pain is well controlled with oral pain medications. Objective: Physical Exam: General - Alert and oriented, no apparent distress Abdomen - Soft, appropriately tender to palpation, non-distended, fundus firm at umbilicus Extremities - no edema, negative Chucho's bilaterally Incision- c/d/i Assessment: POD 1 PLTCS Acute blood loss anemia- superimposed on anemia of Peripartum HTN- labile Plan: Routine care. Encourage breast feeding. Encourage ambulation. Ferrous sulfate supplementation. Plan for discharge tomorrow Vitals - Labs Vital Signs - I&O Vital Signs Date Time Temp Pulse Resp B/P (MAP) Pulse Ox O2 Delivery O2 Flow Rate FiO2 04/07/21 08:30 36.9 104 18 121/81 (94) 99 Room Air 04/07/21 05:10 36.8 106 18 147/97 (114) 100 Room Air 04/07/21 01:38 81 18 149/86 (107) 100 Room Air 04/07/21 01:20 69 18 142/94 (110) 100 Room Air 04/07/21 01:05 69 18 130/88 (102) 99 Room Air 04/07/21 00:38 36.5 20 142/95 (111) 97 Room Air 04/07/21 00:37 Room Air 04/07/21 00:31 20 140/90 (107) 97 Room Air 04/07/21 00:30 Room Air 04/07/21 00:20 20 139/89 (106) 99 OxyMask 10 04/07/21 00:20 OxyMask 10 04/07/21 00:09 20 132/92 (105) 99 OxyMask 10 04/07/21 00:06 OxyMask 10 04/07/21 00:00 24 126/86 (99) 99 OxyMask 10 04/06/21 23:48 36.1 16 115/67 (83) 98 OxyMask 10 04/06/21 23:48 OxyMask 10 04/06/21 19:20 82 18 130/82 (98) Room Air 04/06/21 19:05 90 18 149/87 (107) Room Air 04/06/21 18:51 96 18 145/82 (103) Room Air 04/06/21 18:37 85 18 150/90 (110) Room Air 04/06/21 18:22 90 18 137/87 (104) Room Air 04/06/21 18:05 101 18 149/93 (111) Room Air 04/06/21 17:51 95 18 145/86 (105) Room Air 04/06/21 17:37 92 18 142/87 (105) Room Air 04/06/21 17:21 94 18 133/88 (103) Room Air 04/06/21 17:04 36.6 87 18 140/77 (98) Room Air 04/06/21 14:03 36.7 97 18 99 Room Air I & O 04/07/21 07:00 Intake Total 1750 ml Output Total 1700 ml Balance 50 ml Labs Laboratory Tests 04/07/21 05:48: White Blood Count 16.9H, Red Blood Count 3.68L, Hemoglobin 7.6L, Hematocrit 26L, Mean Corpuscular Volume 71L, Mean Corpuscular Hemoglobin 21L, Mean Corpuscular Hemoglobin Concent 29L, Red Cell Distribution Width 17.0H, Platelet Count 231, Mean Platelet Volume 10.7, Immature Granulocyte % (Auto) 1, Neutrophils (%) (Auto) 90H, Lymphocytes (%) (Auto) 6L, Monocytes (%) (Auto) 4, Eosinophils (%) (Auto) 0, Basophils (%) (Auto) 0, Neutrophils # (Auto) 15.2H, Lymphocytes # (Auto) 1.0, Monocytes # (Auto) 0.7, Eosinophils # (Auto) 0.0, Basophils # (Auto) 0.1, Immature Granulocyte # (Auto) 0.1 Microbiology 04/06/21 Urine Culture - Final, Complete Gram Pos Mixed Bacterial Allyssa CAMILA MEADOWS DO Apr 07, 2021 11:38
[2021-04-07] MEDS ORDERED: IBUPROFEN 600 MG (MOTRIN) TAB PO ONE (16:36)
[2021-04-07] MEDS: IBUPROFEN 600 MG (MOTRIN) TAB PO SCH ×2 (16:38→21:52)
[2021-04-08] MEDS ORDERED: IBUPROFEN 600 MG (MOTRIN) TAB PO SCH
[2021-04-08] MEDS: IBUPROFEN 600 MG (MOTRIN) TAB PO SCH ×2 (03:44→10:17)
[2021-04-08] MEDS: ACETAMINOPHEN 500 MG TAB (TYLENOL) PO SCH (03:44)
[2021-04-08 03:45] VITALS: BP 139/80
[2021-04-08 07:50] VITALS: BP 132/88
[2021-04-08] MEDS ORDERED: OXC5T PO (09:36)
[2021-04-08] MEDS: DOCUSATE SODIUM 100 MG (COLACE) CAP PO SCH (10:16)
[2021-04-08] MEDS: FERROUS SULF 325 MG (IRON) TAB PO SCH (10:17)
[2021-04-08 11:21] VITALS: BP 139/80
== END 2021-04-08 12:40 | disposition home or self-care (01) | DRG 787 ==
LOC: WSo 08:59 → LDRP 09:00 → WSo 22:00 → LDRP 22:00 → WS 04-07 01:16
PROVIDERS: ADMIT Obstetrics & Gynecology; ATTEND Obstetrics & Gynecology
PROC: 10D00Z1 Extraction of Products of Conception, Low, Open Approach (ICD-10-PCS; principal; 2021-04-06 22:54)
DX: O13.4 Gestational [pregnancy-induced] hypertension without significant proteinuria, complicating childbirth (principal); D62 Acute posthemorrhagic anemia; O24.420 Gestational diabetes mellitus in childbirth, diet controlled; O36.8330 Maternal care for abnormalities of the fetal heart rate or rhythm, third trimester, not applicable or unspecified; O90.81 Anemia of the puerperium; O40.3XX0 Polyhydramnios, third trimester, not applicable or unspecified; O62.2 Other uterine inertia; Z37.0 Single live birth; Z3A.38 38 weeks gestation of pregnancy; O99.013 Anemia complicating pregnancy, third trimester; O99.824 Streptococcus B carrier state complicating childbirth; Z88.6 Allergy status to analgesic agent
CPT/HCPCS: 36415; 80053; 81000; 82570; 83615; 84156; 85025; 87088; 94664; 99212

== ENCOUNTER 2021-11-13 22:54 | Emergency (ER) | payer MEDICAID ==
[~2021-11-13] VITALS: Ht 170 cm; Wt 65.0 kg
[~2021-11-13 22:54] MED LIST changes: +ACET-93 PO; +DOCU100C37 PO; +IBUP-844 PO; +OXC5T PO
--- NOTE | 2021-11-13 23:11 | ED Lower Extremity ---
General Chief Complaint: Lower Extremity Stated Complaint: FALL, L FOOT PAIN Source: patient Exam Limitations: no limitations History of Present Illness Date Seen by Provider: Nov 13, 2021 Time Seen by Provider: 22:59 Initial Comments 26-year-old female that is 7 weeks on November 14 with an LMP of September 26 coming in due to left foot pain. About an hour prior to arrival she was stepping off a step and felt a sharp pain in her left lateral foot. The pain is severe, constant, sharp, worse with any type of pressure, better with rest. She is taken nothing for as of yet. She did hear a pop. He cannot remember if she really rolled her foot. She is otherwise denying any other acute complaints Allergies and Home Medications Allergies Coded Allergies: codeine (Unverified Adverse Reaction, Unknown, 05/07/19) Patient Home Medication List Home Medication List Reviewed: Yes Acetaminophen (Acetaminophen) 500 Mg Tablet, 1,000 MG PO Q8HR Prescribed by: DIANE ROBLES on 04/07/21146 Docusate Sodium (Docusate Sodium) 100 Mg Capsule, 100 MG PO BID Prescribed by: DIANE ROBLES on 04/07/21146 Ibuprofen (Ibu) 600 Mg Tablet, 600 MG PO Q6HR Prescribed by: DIANE ROBLES on 04/07/21146 Iron,Carbonyl/Vit C/Vit B12/FA (Iron 100 Plus Tablet) 1 Each Tablet, 1 EACH PO ONCE, (Reported) Entered as Reported by: HORACIO ROBB on 01/16/211946 Oxycodone Hcl (Oxyir Tablet) 5 Mg Tab, 5 MG PO Q4H PRN for PAIN-BREAKTHROUGH Prescribed by: CAMILA MEADOWS on 04/08/21 0936 Vit/Iron Fumarate/FA ( Vitamins Tablet) 1 Each Tablet, 1 EACH PO DAILY, (Reported) Entered as Reported by: HORACIO ROBB on 01/16/211946 Review of Systems Constitutional: No fever EENTM: No blurred vision Respiratory: No cough Cardiovascular: No chest pain Gastrointestinal: no symptoms reported Genitourinary: no symptoms reported : Yes Musculoskeletal: joint pain Skin: no symptoms reported Psychiatric/Neurological: No Symptoms Reported All Other Systems Reviewed Negative Unless Noted: Yes Past [id number]-[id number] Hx Patient Social History Tobacco Use?: No Seasonal Allergies Seasonal Allergies: No Past Medical History Surgeries: No Respiratory: No Currently Using CPAP: No Currently Using BIPAP: No Cardiac: No Neurological: No Genitourinary: No Gastrointestinal: No Musculoskeletal: Yes (L foot Fx 2010) Fractures Endocrine: No HEENT: No Cancer: No Psychosocial: Yes Bipolar, Depression Integumentary: No Blood Disorders: No Physical Exam Vital Signs Capillary Refill : Height, Weight, BMI Height: '" Weight: lbs. oz. kg; 38.45 BMI Method: General Appearance: WD/WN, no apparent distress HEENT: PERRL/EOMI, normal ENT inspection, pharynx normal Neck: non-tender, full range of motion, supple, normal inspection Cardiovascular: regular rate, rhythm, no edema, no murmur Respiratory: chest non-tender, lungs clear, normal breath sounds, no respiratory distress, no accessory muscle use Gastrointestinal: normal bowel sounds, non tender, soft; No distended, No guarding, No rebound Back: normal inspection Ankles: bilateral ankle non-tender, bilateral ankle normal inspection, bilateral ankle normal range of motion, bilateral ankle no evidence of injury Feet: right foot non-tender, right foot normal inspection, right foot normal range of motion, right foot no evidence of injury; left foot abrasions/lacerati ons (Base of fifth metatarsal, no Lisfranc tenderness) Neurologic/Tendon: normal sensation, normal motor functions, normal tendon functions Neurologic/Psychiatric: no motor/sensory deficits, alert, normal mood/affect Skin: normal color, warm/dry Lymphatic: no adenopathy Progress/Results/Core Measures Results/Orders My Orders Orders - AUGUSTO PACKER MD Foot 3 View Left (11/13/21 23:04) Acetaminophen Tablet (Tylenol Tablet) (11/13/21 23:15) Progress Progress Note : Progress Note 26-year-old female with above history coming in due to left foot pain after twisting it. ABCs were intact and vitals were stable on presentation. Physical exam with left fifth metatarsal pain at the base. Given Tylenol for pain. X- ray obtained and interpreted by me showing a base of the fifth metatarsal fracture that is an avulsion. She was placed in a boot and given crutches. She should follow-up with orthopedics as an outpatient. Departure Impression Primary Impression: Fracture of 5th metatarsal Qualified Codes: S92.355A - Nondisplaced fracture of fifth metatarsal bone, left foot, initial encounter for closed fracture Disposition: 01 HOME, SELF-CARE Condition: Stable Departure-Patient Inst. Decision time for Depature: 23:20 Referrals: LILLY VELOZ ANGELA C DO (PCP/Family) Primary Care Physician Patient Instructions: Foot Avulsion Fracture (DC) Add. Discharge Instructions: Try to stay in the boot and do not put any weight on the foot. Use the crutches to get everywhere. He can take the boot off the base without putting weight on your foot. Follow-up with Chaim Veloz here in [facility] who is the bone specialist. Take Tylenol or ibuprofen as needed for pain as they are not addicting. You can also ice the area. Work/School Note: Work Release Form Date Seen in the Emergency Department: Nov 13, 2021 Return to Work: Nov 15, 2021 Restrictions: No Restrictions AUGUSTO PACKER MD Nov 13, 2021 23:11
[2021-11-13] MEDS ORDERED: ACETAMINOPHEN 500 MG TAB (TYLENOL) PO ONE (23:15)
[2021-11-13 23:31] VITALS: BP 142/99
--- NOTE | 2021-11-15 08:29 | Diagnostic Imaging Report ---
INDICATION: Left foot pain. 3 views of left foot show nondisplaced avulsion fracture at the base of 5th metatarsal. IMPRESSION: Incomplete, nondisplaced fracture base of the left 5th metatarsal. Dictated by: Dictated on workstation # [id number]
== END 2021-11-13 23:31 | disposition home or self-care (01) ==
LOC: EDUNIT# 22:54 → ER FS 22:55
DX: S92.352A Displaced fracture of fifth metatarsal bone, left foot, initial encounter for closed fracture (principal); Z28.310 Unvaccinated for COVID-19; X50.1XXA Overexertion from prolonged static or awkward postures, initial encounter
CPT/HCPCS: 73630